=== PATIENT | female | born 1985 | race African-American/Black ===

== ENCOUNTER 2016-09-02 14:19 | Emergency (ER) | payer OTHER ==
[2016-09-02 14:28] VITALS: BP 126/80; PULSE 97; TEMP 98.2; BMI 28.4
--- NOTE | 2016-09-02 15:54 | PDOC ---
History of Present Illness - General Chief Complaint: Headache Stated Complaint: PAIN IN THE HEAD Time Seen by Provider: 09/02/16 14:34 History Source: Patient - History of Present Illness Timing/Duration: reports: other Associated Symptoms: reports: nausea/vomiting. denies: fever/chills, vision changes Past History - Past Medical History Allergies/Adverse Reactions: Allergies Allergy/AdvReac Type Severity Reaction Status Date / Time kiwi Allergy Swelling Verified 09/02/16 14:22 latex Allergy Rash Verified 09/02/16 14:22 epidural Allergy Swelling Uncoded 09/02/16 14:22 Home Medications: Ambulatory Orders Albuterol Sulfate Inhaler - [Ventolin Hfa Inhaler -] 1 - 2 inh PO QID PRN Ibuprofen [Motrin -] 600 mg PO TID PRN #21 tablet 11/03/15 Sulfamethoxazole/Trimethoprim [Bactrim Ds -] 1 tab PO BID #6 tablet 11/03/15 Anemia: Yes Asthma: Yes Cancer: No Cardiac Disorders: No Diabetes: No HTN: No Suicide Attempt (Hx): No Seizures: No Thyroid Disease: No - Reproductive History (#): 4 Para: 1 Therapeutic (s) & number: Yes (1) Spontaneous : 1 - Immunization History Immunization Up to Date: Yes - Psycho/Social/Smoking Cessation Hx Anxiety: No Suicidal Ideation: No Smoking History: Current every day smoker Have you smoked in the past 12 months: Yes Number of Cigarettes Smoked Daily: 6 If you are a former smoker, when did you quit?: 04/2012 Information on smoking cessation initiated: No Hx Alcohol Use: No Drug/Substance Use Hx: No Substance Use Type: None Hx Substance Use Treatment: No Review of Systems - Review of Systems Constitutional: No: Fever HEENTM: No: Blurred Vision ABD/GI: Yes: Nausea. No: Vomiting Neurological: Yes: Headache. No: Dizziness *Physical Exam - Vital Signs Last Vital Signs Temp Pulse Resp BP Pulse Ox 98.2 F 97 H 19 126/80 100 09/02/16 14:22 09/02/16 14:22 09/02/16 14:22 09/02/16 14:22 09/02/16 14:22 - Physical Exam Comments: 09/02/16 15:54 well phoebe, in NAD General Appearance: Yes: Appropriately Dressed. No: Apparent Distress HEENT: positive: Normal Voice Neck: positive: Supple Respiratory/Chest: negative: Respiratory Distress Integumentary: positive: Dry, Warm Neurologic: positive: Fully Oriented, Alert, Normal Mood/Affect, Motor Strength 07/02 Medical Decision Making - Medical Decision Making 09/02/16 15:46 31-year-old female, history of asthma, presenting w/ SANDOVAL. Patient states she's had similar headaches for approximately 1 year, usually located to left latter-day and sometimes associated with left retro-orbital pain and nausea. Pain reoccurred this am and has since improved w/ otc meds. Has been to see her PMD for headaches once in the past with no clear diagnosis. Has never been evaluated by a neurologist per pt. No unexplained weight loss. No sig fmhx See exam Acute on chronic SANDOVAL Currently improved w/ otc meds Stable and well ap w/ unremarkable exam Possibly migraines based on HPI Upreg neg -Dc w/ neuro f/u 09/02/16 15:55 *DC/Admit/Observation/Transfer Diagnosis at time of Disposition: Headache Qualifiers: Headache type: unspecified Headache chronicity pattern: chronic headache Intractability: not intractable Qualified Code(s): R51 - Headache - Discharge Dispostion Condition at time of disposition: Improved - Referrals Referrals: Jazmine Luu MD [Primary Care Provider] - Gregg Arnold MD [Staff Physician] - - Patient Instructions Printed Discharge Instructions: Migraine -- Adult Additional Instructions: Continue taking [id number] medication and follow-up with Dr. Gregg Arnold of neurology for further evaluation for your headache
== END 2016-09-02 16:17 | disposition home or self-care (01) ==
LOC: JERFT 14:19
DX: R51 Headache (principal); J45.909 Unspecified asthma, uncomplicated
CPT/HCPCS: 84703; 99281-25

== ENCOUNTER 2017-07-06 15:00 | Emergency (ER) | payer OTHER ==
[2017-07-06 15:54] VITALS: BP 118/80; PULSE 90; TEMP 98.8; BMI 30.7
--- NOTE | 2017-07-06 15:56 | PDOC ---
Rapid Medical Evaluation Time Seen by Provider: 07/06/17 15:53 Medical Evaluation: Allergies Allergy/AdvReac Type Severity Reaction Status Date / Time kiwi Allergy Swelling Verified 07/06/17 15:48 latex Allergy Rash Verified 07/06/17 15:48 epidural Allergy Swelling Uncoded 07/06/17 15:48 Vital Signs Temp Pulse Resp BP Pulse Ox 98.8 F 90 19 118/80 99 07/06/17 15:48 07/06/17 15:48 07/06/17 15:48 07/06/17 15:48 07/06/17 15:48 07/06/17 15:54 I have performed a brief in-person evaluation of this patient. The patient presents with a chief complaint of: facial/neck pain and swelling x 2 days, also c/o CP while at work today. H/o asthma Pertinent physical exam findings:Stable w/ swelling to submandibular area extending into neck w/ ?ttp to sublingual area, poor dentition, chest/lungs clear I have ordered the following:labs/ekg The patient will proceed to the ED for further evaluation. Discharge Disposition - Diagnosis Facial swelling - Referrals - Patient Instructions - Post Discharge Activity
[2017-07-06 16:09] LABS: BASO % 1.1 % (0-2.0); EOS % 2.2 % (0-4.5); HEMATOCRIT 37.9 % (32.4-45.2); HEMOGLOBIN 12.5 GM/dL (10.7-15.3); LYMPH % 32.4 % (8-40); MCH 28.9 pg (25.7-33.7); MEAN CELL VOLUME 87.5 fl (80-96); MEAN PLT VOLUME 9.3 fl (7.5-11.1); MONO % 6.4 % (3.8-10.2); NEUT % 57.9 % (42.8-82.8); PLATELET COUNT 234 K/MM3 (134-434); RBC 4.33 M/mm3 (3.60-5.2); RDW 13.6 % (11.6-15.6); WHITE BLOOD COUNT 10.9 K/mm3 (4.0-10.0)
[2017-07-06 16:42] LABS: URINE APPEARANCE SLCLOUDY; URINE BILIRUBIN NEGATIVE (<2.0 mg/dL); URINE COLOR YELLOW; URINE GLUCOSE (UA) NEGATIVE (NEGATIVE); URINE KETONE NEGATIVE (NEGATIVE); URINE LEUK ESTERASE TRACE (NEGATIVE); URINE NITRITE NEGATIVE (NEGATIVE); URINE PROTEIN NEGATIVE (NEGATIVE)
[2017-07-06] MEDS ORDERED: SODIUM CHLORIDE 0.9% 1000 ML INFUS.BAG IV ONE (16:43)
[2017-07-06] MEDS ORDERED: ACETAMINOPHEN 1000 MG/100 ML VIAL (NON FORMULARY) IVPB ONE (16:43)
[2017-07-06 16:58] LABS: EPI CELLS RARE /HPF (FEW); URINE BACTERIA RARE /hpf (NONE SEEN); URINE MUCUS FEW
--- NOTE | 2017-07-06 17:05 | PDOC ---
History of Present Illness - General Chief Complaint: Pain, Acute Stated Complaint: MOUTH PAIN/SWELLING&CHEST PAIN Time Seen by Provider: 07/06/17 15:53 History Source: Patient Exam Limitations: No Limitations - History of Present Illness Initial Comments: 07/06/17 17:03 The patient is a 31F with a PMH of asthma who presents to the ER with jaw and submandibular pain. The patient states that she began to have jaw and neck pain yesterday and took an ibuprofen this morning when she noticed the pain was not getting better. She states that she woke up this morning and noticed swelling on the bottom of her jaw with tenderness on palpation. The patient states that she had a dental extraction 1 month ago and was not given antibiotics after. The patient denies any fever, chills, nausea, vomiting. She does admit to CP which is described as across her sternum and pressure like since this morning. She cannot describe the pain further. Past History - Past Medical History Allergies/Adverse Reactions: Allergies Allergy/AdvReac Type Severity Reaction Status Date / Time kiwi Allergy Swelling Verified 07/06/17 15:48 latex Allergy Rash Verified 07/06/17 15:48 epidural Allergy Swelling Uncoded 07/06/17 15:48 Home Medications: Ambulatory Orders Albuterol Sulfate Inhaler - [Ventolin Hfa Inhaler -] 1 - 2 inh PO QID PRN Ibuprofen [Motrin -] 600 mg PO TID PRN #21 tablet 11/03/15 Sulfamethoxazole/Trimethoprim [Bactrim Ds -] 1 tab PO BID #6 tablet 11/03/15 Anemia: Yes Asthma: Yes Cancer: No Cardiac Disorders: No COPD: No Diabetes: No HTN: No Seizures: No Thyroid Disease: No - Reproductive History (#): 4 Para: 1 Therapeutic (s) & number: Yes (1) Spontaneous : 1 - Immunization History Immunization Up to Date: Yes - Suicide/Smoking/Psychosocial Hx Smoking History: Current every day smoker Have you smoked in the past 12 months: Yes Number of Cigarettes Smoked Daily: 6 If you are a former smoker, when did you quit?: 04/2012 Information on smoking cessation initiated: No Hx Alcohol Use: No Drug/Substance Use Hx: No Substance Use Type: None Hx Substance Use Treatment: No Review of Systems - Review of Systems Able to Perform ROS?: Yes Comments:: 07/06/17 17:34 GENERAL/CONSTITUTIONAL: No fever or chills. No weakness. HEAD, EYES, EARS, NOSE AND THROAT: Positive for jaw pain and swelling. No change in vision. No ear pain or discharge. No sore throat. CARDIOVASCULAR: Positive for chest pain. No palpitations or lightheadedness. RESPIRATORY: No cough, wheezing, shortness of breath, or hemoptysis. GASTROINTESTINAL: No nausea, vomiting, diarrhea, constipation, or abdominal pain. GENITOURINARY: No dysuria, frequency, hematuria, or change in urination. MUSCULOSKELETAL: No joint or muscle swelling or pain. No neck or back pain. SKIN: No rash or lesions. NEUROLOGIC: No headache, numbness, tingling, weakness, loss of consciousness, or change in strength/sensation. ENDOCRINE: No increased thirst. No abnormal weight change. HEMATOLOGIC/LYMPHATIC: No anemia, easy bleeding, or history of blood clots. ALLERGIC/IMMUNOLOGIC: No hives or skin allergy. Is the patient limited Yi proficient: No *Physical Exam - Vital Signs Last Vital Signs Temp Pulse Resp BP Pulse Ox 98.8 F 90 19 118/80 99 07/06/17 15:48 07/06/17 15:48 07/06/17 15:48 07/06/17 15:48 07/06/17 15:48 - Physical Exam Comments: 07/06/17 17:39 GENERAL: Well developed, well nourished. Awake and alert. No acute distress. HEENT: Normocephalic, atraumatic. Hearing grossly normal. Moist mucous membranes. PERRLA, EOMI. No conjunctival pallor. Sclera are non-icteric. Oropharynx is clear. NECK: Tender to palpation over submandibular jaw with swelling. Full ROM. No JVD. No lymphadenopathy. CARDIOVASCULAR: Chest tender to palpation. Regular rate and rhythm. No murmurs, rubs, or gallops. PULMONARY: No evidence of respiratory distress. Lungs clear to auscultation bilaterally. No wheezing, rales or rhonchi. ABDOMINAL: Soft. Non-tender. Non-distended. No rebound or guarding. No organomegaly. Normoactive bowel sounds. GENITOURINARY: No CVA tenderness bilaterally. MUSCULOSKELETAL: Normal range of motion at all joints. No bony deformities or tenderness. EXTREMITIES: No cyanosis. No clubbing. No edema. No calf tenderness. SKIN: Warm and dry. Normal capillary refill. No rashes. No jaundice. NEUROLOGICAL: Alert, awake, appropriate. Cranial nerves 2-12 intact. Normal speech. Gait is normal without ataxia. PSYCHIATRIC: Cooperative. Good eye contact. Appropriate mood and affect. ED Treatment Course - LABORATORY CBC & Chemistry Diagram: 07/06/17 16:03 07/06/17 16:03 - ADDITIONAL ORDERS Additional order review: Laboratory Results 07/06/17 16:08 Urine Color Yellow Urine Appearance Slcloudy Urine pH 6.0 Ur Specific [place] 1.017 Urine Protein Negative Urine Glucose (UA) Negative Urine Ketones Negative Urine Blood Negative Urine Nitrite Negative Urine Bilirubin Negative Urine Urobilinogen 2.0 H Ur Leukocyte Esterase Trace Urine WBC (Auto) 3 Urine RBC (Auto) 5 Ur Epithelial Cells Rare Urine Bacteria Rare Urine Mucus Few 07/06/17 16:03 RBC 4.33 MCV 87.5 MCHC 33.0 RDW 13.6 MPV 9.3 Neutrophils % 57.9 Lymphocytes % 32.4 D Monocytes % 6.4 Eosinophils % 2.2 Basophils % 1.1 Medical Decision Making - Medical Decision Making 07/06/17 17:39 The patient is a 31F with a PMH of asthma who presents with jaw pain. The patient does not have any tongue protrusion and is afebrile. Pending labs and imaging (CT soft tissue neck and face). 07/06/17 20:34 Pt signed out to Dr. Stevens, night team. Pending imaging read. *DC/Admit/Observation/Transfer Diagnosis at time of Disposition: Facial swelling - Referrals - Patient Instructions - Post Discharge Activity
[2017-07-06 17:23] LABS: CHLORIDE 107 mmol/L (98-107); SODIUM 140 mmol/L (136-145)
[2017-07-06 17:34] LABS: ALK PHOS 78 U/L (45-117); ANION GAP 6 (8-16); BILIRUBIN,TOTAL 0.6 mg/dL (0.2-1.0); BLOOD UREA NITROGEN 5 mg/dL (7-18); CALCIUM 8.2 mg/dL (8.5-10.1); CO2 27 mmol/L (21-32); CREATININE 0.8 mg/dL (0.55-1.02); GLUCOSE,RANDOM 89 mg/dL (74-106); SGOT/AST 11 U/L (15-37); SGPT/ALT 12 U/L (12-78); TOT PROT 7.6 g/dl (6.4-8.2)
[2017-07-06] MEDS ORDERED: ACETAMINOPHEN INJECTION 100 ML IVPB ONE (18:22)
--- NOTE | 2017-07-06 20:34 | PDOC ---
*Physical Exam - Vital Signs Last Vital Signs Temp Pulse Resp BP Pulse Ox 98.8 F 90 19 118/80 99 07/06/17 15:48 07/06/17 15:48 07/06/17 15:48 07/06/17 15:48 07/06/17 15:48 ED Treatment Course - LABORATORY CBC & Chemistry Diagram: 07/06/17 16:03 07/06/17 16:03 - ADDITIONAL ORDERS Additional order review: Laboratory Results 07/06/17 07/06/17 07/06/17 16:08 16:03 16:03 Sodium 140 Potassium 4.0 Chloride 107 Carbon Dioxide 27 Anion Gap 6 L BUN 5 L Creatinine 0.8 Creat Clearance w eGFR > 60 Random Glucose 89 Calcium 8.2 L Total Bilirubin 0.6 D AST 11 L ALT 12 Alkaline Phosphatase 78 Creatine Kinase 160 Troponin I < 0.02 Total Protein 7.6 Albumin 4.0 Serum , Qual Negative Urine Color Yellow Urine Appearance Slcloudy Urine pH 6.0 Ur Specific [place] 1.017 Urine Protein Negative Urine Glucose (UA) Negative Urine Ketones Negative Urine Blood Negative Urine Nitrite Negative Urine Bilirubin Negative Urine Urobilinogen 2.0 H Ur Leukocyte Esterase Trace Urine WBC (Auto) 3 Urine RBC (Auto) 5 Ur Epithelial Cells Rare Urine Bacteria Rare Urine Mucus Few 07/06/17 16:03 RBC 4.33 MCV 87.5 MCHC 33.0 RDW 13.6 MPV 9.3 Neutrophils % 57.9 Lymphocytes % 32.4 D Monocytes % 6.4 Eosinophils % 2.2 Basophils % 1.1 - Medications Given in the ED: ED Medications Discontinued Medications Generic Name Dose Route Start Last Admin Trade Name Alondra PRN Reason Stop Dose Admin Acetaminophen 1,000 mg 07/06/17 16:43 07/06/17 18:31 Ofirmev Injection - IVPB 07/06/17 16:44 1,000 mg ONCE ONE Administration Sodium Chloride 1,000 ml 07/06/17 16:43 07/06/17 18:31 Normal Saline - IV 07/06/17 16:44 1,000 ml ONCE ONE Administration Medical Decision Making - Medical Decision Making Pt endorsed to me by Dr. Bermudez. Will f/u CT soft tissue of neck. If evidence of abscess, admit for IV abx and possible I+D. 07/06/17 20:33 Pt will leave AMA. Acknowledged understanding of risks of lack of IV abx for infection, including worsening infection, loss of airway and sepsis. 10 day course of oral clindamycin sent to pt's pharmacy. 07/06/17 22:39 *DC/Admit/Observation/Transfer Diagnosis at time of Disposition: Facial swelling, Tooth infection, Lymphadenopathy of head and neck - Discharge Dispostion Disposition: AGAINST MEDICAL ADVICE Condition at time of disposition: Unchanged/Unknown - Prescriptions Prescriptions: Clindamycin [Cleocin -] 450 mg PO Q8H #90 capsule - Referrals Referrals: Jose Pollack MD [Staff Physician] - - Patient Instructions Printed Discharge Instructions: DI for Tooth Decay, DI for Lymphadenopathy Additional Instructions: Please make an appointment to see your PMD and the dentist tomorrow. If your swelling increased please return to the ED immediately. - Post Discharge Activity
[2017-07-06] MEDS ORDERED: CLINDAMYCIN 600MG PREMIX IVPB 600 MG/50 ML BAG IVPB ONE ×2 (21:03→21:15)
--- NOTE | 2017-07-06 22:02 | PDOC ---
Attending Attestation - Resident Resident Name: Andrez Bermudez - ED Attending Attestation I have performed the following: I have examined & evaluated the patient, The case was reviewed & discussed with the resident, I agree w/resident's findings & plan, Exceptions are as noted - Medical Decision Making 07/06/17 22:02 I, Dr. Arleth Davis, DO, attest that this document has been prepared under my direction and personally reviewed by me in its entirety. I further attest, that it accurately reflects all work, treatment, procedures and medical decision -making performed by me. 07/06/17 22:09 a/p: 31yo female with neck swelling/submandibular swelling -soft tissue swelling to submandibular space - soft, but swollen -concern for poss ludwigs angina -will obtain labs, ct soft tissue neck, start abx -cultures will be sent -front lower teeth with poss tooth abscess, poss potential for transmission of infection 07/06/17 22:15 no fevers mildly elevated wbc ct shows submandibular lymphadenopathy abx running no signs of deep space infeciton on ct 07/06/17 22:[address] findings states she cannot stay for iv abx discussed risk benefit of staying for iv abx pt states she wants to sign out AMA and will take abx as an outpt 07/06/17 22:16 Note: The patient insists on leaving the emergency dept and is signing out against medical advice. The patient understands the risks and complications that may result from the refusal of medical care and admission which includes and permanent disability. The patient has the mental capacity of understanding the risks of refusing care and is capable of making an informed decision. The patient was instructed to return to the emergency department should She change her mind regarding medical care or should her condition worsen. The patient signed the Against Medical Advice form. <Arleth Davis - Last Filed: 07/06/17 22:09> - HPI HPI: 07/06/17 22:25 The patient is a 31 year old female with no past medical history who presents to the ED with 1 day of submandibular neck swelling and pain that is unaffected by ibuprofen. She reports having difficulty opening and closing her mouth as well. She reports having a dental extraction performed 1 month ago and not receiving any antibiotics afterwards. The patient also reports developing chest pain since this morning without any radiation, palpitations, or shortness of breath. Denies any fevers, chills, nausea, vomiting, diarrhea, cough, or urinary symptoms. - Physicial Exam PE: 07/06/17 22:26 GENERAL: Awake, alert, and fully oriented, in no acute distress HEAD: No signs of trauma EYES: PERRLA, EOMI, sclera anicteric, conjunctiva clear ENT: Auricles normal inspection, hearing grossly normal, nares patent, oropharynx clear without exudates. Moist mucosa. No tongue elevation NECK: soft tissue swelling to submandibular space.Normal ROM, supple, no JVD. LUNGS: Breath sounds equal, clear to auscultation bilaterally. No wheezes, and no crackles HEART: Regular rate and rhythm, normal S1 and S2, no murmurs, rubs or gallops ABDOMEN: Soft, nontender, normoactive bowel sounds. No guarding, no rebound. No masses EXTREMITIES: Normal range of motion, no edema. No clubbing or cyanosis. No cords, erythema, or tenderness NEUROLOGICAL: Cranial nerves II through XII grossly intact. Normal speech, normal gait SKIN: Warm, Dry, normal turgor, no rashes or lesions noted. - Medical Decision Making 07/06/17 22:27 Documentation prepared by Kimberley Schwartz, acting as medical staffing coordinator for Arleth Davis DO. <Kimberley Schwartz - Last Filed: 07/06/17 22:27> Discharge Disposition - Discharge Dispostion Last Admission D/C Date: 11/02/13 Decision to Admit order: No <Arleth Davis - Last Filed: 07/06/17 22:09> <Kimberley Schwartz - Last Filed: 07/06/17 22:27> - Diagnosis Facial swelling, Tooth infection, Lymphadenopathy of head and neck - Discharge Dispostion Disposition: AGAINST MEDICAL ADVICE Condition at time of disposition: Unchanged/Unknown - Prescriptions Prescriptions: Clindamycin [Cleocin -] 450 mg PO Q8H #90 capsule - Referrals Referrals: Jose Pollack MD [Staff Physician] - - Patient Instructions Printed Discharge Instructions: DI for Tooth Decay, DI for Lymphadenopathy Additional Instructions: Please make an appointment to see your PMD and the dentist tomorrow. If your swelling increased please return to the ED immediately.
== END 2017-07-06 22:55 | disposition left against medical advice (07) ==
LOC: JER 15:00
PROC: 3E03329 Introduction of Other Anti-infective into Peripheral Vein, Percutaneous Approach (ICD-10-PCS; principal; 2017-07-06)
PROC: 3E033NZ Introduction of Analgesics, Hypnotics, Sedatives into Peripheral Vein, Percutaneous Approach (ICD-10-PCS; 2017-07-06)
DX: K04.7 Periapical abscess without sinus (principal); R59.0 Localized enlarged lymph nodes
CPT/HCPCS: 36415; 70491-TC; 80053; 81003; 81015; 82550; 82553; 84484; 84703; 85025; 87040; 99285-25; J0131; J7030

== ENCOUNTER 2019-02-08 11:18 | Emergency (ER) | payer OTHER ==
[2019-02-08 11:26] VITALS: BP 116/88; PULSE 97; TEMP 98.2; BMI 30.4
--- NOTE | 2019-02-08 11:51 | PDOC ---
History of Present Illness - General Chief Complaint: Foreign Body (FB) Stated Complaint: SWALLOWED DENTAL INPLANT Time Seen by Provider: 02/08/19 11:23 - History of Present Illness Initial Comments: 02/08/19 11:46 33 years old with no significant past medical history had a left upper tooth dental implants which she swallowed approximately 15 minutes ago patient concerned because the dental implant had a screw Currently asymptomatic with no complaints Past History - Past Medical History Allergies/Adverse Reactions: Allergies Allergy/AdvReac Type Severity Reaction Status Date / Time kiwi Allergy Swelling Verified 02/08/19 11:19 latex Allergy Rash Verified 02/08/19 11:19 epidural Allergy Swelling Uncoded 02/08/19 11:19 Home Medications: Ambulatory Orders Albuterol Sulfate Inhaler - [Ventolin Hfa Inhaler -] 1 - 2 inh PO QID PRN Anemia: Yes Asthma: Yes Cancer: No Cardiac Disorders: No COPD: No Diabetes: No HTN: No Seizures: No Thyroid Disease: No - Reproductive History Is Patient Now?: No (#): 4 Para: 1 Therapeutic (s) & number: Yes (1) Spontaneous : 1 - Immunization History Immunization Up to Date: Yes - Psycho Social/Smoking Cessation Hx Smoking History: Current every day smoker Have you smoked in the past 12 months: Yes Number of Cigarettes Smoked Daily: 4 If you are a former smoker, when did you quit?: 04/2012 Information on smoking cessation initiated: Yes Hx Alcohol Use: No Drug/Substance Use Hx: No Substance Use Type: None Hx Substance Use Treatment: No Review of Systems - Review of Systems Comments:: 02/08/19 11:46 ROS: A complete review of 10 out of 10 review of systems is taken and is negative apart from what is previously mentioned below and in the HPI. *Physical Exam - Vital Signs Last Vital Signs Temp Pulse Resp BP Pulse Ox 98.2 F 97 H 16 116/88 100 02/08/19 11:19 02/08/19 11:19 02/08/19 11:19 02/08/19 11:19 02/08/19 11:19 - Physical Exam 02/08/19 11:49 Vitals: Triage Vital signs reviewed General Appearance: No acute distress, well nourished well developed, Head: Atraumatic, Lungs: Clear to auscultation bilateral, good air movement bilaterally, Abdomen: Soft, non distended, normal bowel sounds, non tender to palpation Psych: Normal mood, normal affect ED Treatment Course - RADIOLOGY Radiology Studies Ordered: Category Date Time Status CHEST - PA [RAD] Stat Radiology 02/08/19 11:23 Ordered Medical Decision Making - Medical Decision Making 02/08/19 12:32 Swallowed dental implant visible in the stomach on x-ray appears rounded in nature does not appear sharp Case discussed with Dr. Chandra gastroenterology no indication for acute endoscopic removal at this time will most likely pass on its own Very strict return instructions discussed with patient Findings, the need for follow-up and strict return instructions discussed with patient. Discharge - Discharge Information Problems reviewed: Yes Clinical Impression/Diagnosis: Foreign body Condition: Good Disposition: HOME - Admission No - Follow up/Referral Referrals: Joby Chandra MD [Staff Physician] - - Patient Discharge Instructions Patient Printed Discharge Instructions: DI for Foreign Body, Swallowed-Adult Additional Instructions: Return to the emergency department immediately for any severe stomach pain any blood in stool or for any concerns you can return for repeat x-ray if you like to make sure that the tooth is passing normally Follow-up with your dentist within 1 to 2 weeks. - Post Discharge Activity
== END 2019-02-08 12:43 | disposition home or self-care (01) ==
LOC: FER 11:18
DX: T18.2XXA Foreign body in stomach, initial encounter (principal); X58.XXXA Exposure to other specified factors, initial encounter; Y93.9 Activity, unspecified; Z91.018 Allergy to other foods; Z91.040 Latex allergy status; F17.210 Nicotine dependence, cigarettes, uncomplicated; J45.909 Unspecified asthma, uncomplicated; D64.9 Anemia, unspecified
CPT/HCPCS: 71045-TC-FY; 99282-25

== ENCOUNTER 2021-02-06 09:31 | Emergency (ER) | payer OTHER ==
[2021-02-06 09:47] VITALS: BP 115/76; PULSE 100; TEMP 976; BMI 35.2
== END 2021-02-06 11:16 | disposition home or self-care (01) ==
LOC: JERFT 09:31
DX: M54.50 Low back pain, unspecified (principal)
CPT/HCPCS: 99283-25

== ENCOUNTER 2021-09-24 09:49 | Emergency (ER) | payer OTHER ==
[2021-09-24 10:02] VITALS: BP 130/86; PULSE 91; RESP 20; TEMP 98.3; BMI 37.1
[2021-09-24] MEDS ORDERED: KETOROLAC TROMETHAMINE 30 MG/1 ML VIAL IM ONE (10:40)
[2021-09-24] MEDS ORDERED: KETOROLAC TROMETHAMINE 30 MG/1 ML VIAL ONE (11:14)
== END 2021-09-24 13:01 | disposition home or self-care (01) ==
LOC: JERFT 09:49
PROC: 3E023GC Introduction of Other Therapeutic Substance into Muscle, Percutaneous Approach (ICD-10-PCS; principal; 2021-09-24)
DX: M79.605 Pain in left leg (principal)
CPT/HCPCS: 73562-TC-LT-FY; 93971-TC; 99284-25

== ENCOUNTER 2023-04-01 13:16 | Emergency (ER) | payer OTHER ==
[2023-04-01 13:42] VITALS: BP 133/92; PULSE 91; RESP 18; TEMP 97.8; BMI 36.6
[2023-04-01] MEDS ORDERED: ACETAMINOPHEN 500 MG TABLET (FP) PO ONE (14:19)
[2023-04-01] MEDS ORDERED: ACETAMINOPHEN 325 MG TABLET (FP) ONE (14:57)
[2023-04-01 16:23] LABS: EPI CELLS >36 /uL (0-25.1); HYALINE CASTS 0 /uL (0-3.1); URINE APPEARANCE CLOUDY; URINE BACTERIA 2763 /uL (0-1359); URINE BILIRUBIN NEGATIVE (NEGATIVE); URINE COLOR YELLOW; URINE GLUCOSE (UA) NEGATIVE (NEGATIVE); URINE KETONE NEGATIVE (NEGATIVE); URINE LEUK ESTERASE 1+ (NEGATIVE); URINE NITRITE NEGATIVE (NEGATIVE); URINE PROTEIN NEGATIVE (NEGATIVE); URINE RBC 32 /uL (0-23.9); URINE UROBILINOGEN 0.2 mg/dL (0.2-1.0); URINE WBC 79 /uL (0-25.8)
[2023-04-01 16:24] LABS: HCG,QUALITATIVE URINE Negative
[2023-04-01 16:43] LABS: BASO % 1.1 % (0-2.0); EOS % 2.4 % (0-4.5); HEMATOCRIT 34.6 % (32.4-45.2); HEMOGLOBIN 11.5 GM/dL (10.7-15.3); LYMPH % 37.4 % (8-40); MCH 27.1 pg (25.7-33.7); MCHC 33.4 g/dl (32.0-36.0); MEAN PLT VOLUME 8.9 fl (7.5-11.1); MONO % 4.7 % (3.8-10.2); NEUT % 54.4 % (42.8-82.8); PLATELET COUNT 281 10^3/uL (134-434); RBC 4.27 M/mm3 (3.60-5.2); RDW 14.7 % (11.6-15.6); WHITE BLOOD COUNT 10.6 K/mm3 (4.0-10.0)
[2023-04-01 17:03] LABS: POTASSIUM 3.9 mmol/L (3.5-5.1)
[2023-04-01 17:08] LABS: ALBUMIN 3.4 g/dl (3.4-5.0); BLOOD UREA NITROGEN 9.6 mg/dL (7-18); CALCIUM 9.1 mg/dL (8.5-10.1)
[2023-04-01 17:11] LABS: CREATININE 0.7 mg/dL (0.55-1.3)
[2023-04-01] MEDS ORDERED: cefTRIAXone SODIUM 1 GM VIAL ONE (17:12)
[2023-04-01 17:13] LABS: BILIRUBIN,TOTAL 0.2 mg/dL (0.2-1); TOT PROT 7.4 g/dl (6.4-8.2)
[2023-04-01] MEDS ORDERED: LIDOCAINE HCL 2% (20ML MULTI-DOSE VIAL) ONE (17:20)
== END 2023-04-01 17:47 | disposition home or self-care (01) ==
LOC: JER 13:16
DX: R30.0 Dysuria (principal); M25.512 Pain in left shoulder; N89.8 Other specified noninflammatory disorders of vagina; R10.9 Unspecified abdominal pain
CPT/HCPCS: 36415; 73030-TC-LT-FY; 80053; 81003; 84703; 85025; 87070; 87086; 87186; 87205; 87491; 87591; 87661; 99284-25

== ENCOUNTER 2023-06-07 16:09 | Emergency (ER) | payer OTHER ==
[2023-06-07 16:19] VITALS: BP 120/85; PULSE 98; RESP 18; TEMP 98; BMI 37.1
[2023-06-07 18:33] LABS: BASO % 0.8 % (0-2.0); EOS % 2.4 % (0-4.5); HEMATOCRIT 36.6 % (32.4-45.2); HEMOGLOBIN 11.9 GM/dL (10.7-15.3); LYMPH % 36.4 % (8-40); MCH 26.3 pg (25.7-33.7); MCHC 32.7 g/dl (32.0-36.0); MEAN CELL VOLUME 80.6 fl (80-96); MEAN PLT VOLUME 9.1 fl (7.5-11.1); MONO % 5.3 % (3.8-10.2); NEUT % 55.1 % (42.8-82.8); PLATELET COUNT 321 10^3/uL (134-434); RBC 4.54 M/mm3 (3.60-5.2); RDW 15.7 % (11.6-15.6); WHITE BLOOD COUNT 11.4 K/mm3 (4.0-10.0)
[2023-06-07 19:16] LABS: POTASSIUM 3.7 mmol/L (3.5-5.1)
[2023-06-07 19:21] LABS: ALBUMIN 3.5 g/dl (3.4-5.0); CALCIUM 9.2 mg/dL (8.5-10.1)
[2023-06-07 19:22] LABS: BLOOD UREA NITROGEN 7.6 mg/dL (7-18)
[2023-06-07 19:24] LABS: CREATININE 0.8 mg/dL (0.55-1.3)
[2023-06-07 19:26] LABS: BILIRUBIN,TOTAL 0.3 mg/dL (0.2-1); TOT PROT 7.6 g/dl (6.4-8.2)
[2023-06-07] MEDS ORDERED: IBUPROFEN 600 MG TABLET (FP) PO ONE (20:58)
[2023-06-07] MEDS ORDERED: SULFAMETHOXAZOLE/TRIMETHOPRIM 800MG/160MG D.S. TABLET ONE (20:58)
[2023-06-07] MEDS: SULFAMETHOXAZOLE/TRIMETHOPRIM 800MG/160MG D.S. TABLET PO ONE (21:09)
[2023-06-07] MEDS: IBUPROFEN 600 MG TABLET (FP) PO ONE (21:09)
== END 2023-06-07 22:23 | disposition home or self-care (01) ==
LOC: JERFT 16:09
DX: N64.4 Mastodynia (principal); N60.01 Solitary cyst of right breast
CPT/HCPCS: 36415; 76642-TC-50; 80053; 85025; 99284-25

== ENCOUNTER 2023-09-08 16:45 | Emergency (ER) | payer OTHER ==
[2023-09-08 16:55] VITALS: BP 128/89; PULSE 99; RESP 18; TEMP 98.3; BMI 37.9
[2023-09-08 19:21] LABS: BASO % 0.8 % (0-2.0); EOS % 2.2 % (0-4.5); HEMATOCRIT 33.7 % (32.4-45.2); LYMPH % 36.9 % (8-40); MCH 26.1 pg (25.7-33.7); MCHC 32.6 g/dl (32.0-36.0); MEAN CELL VOLUME 80.2 fl (80-96); MONO % 6.7 % (3.8-10.2); NEUT % 53.4 % (42.8-82.8); PLATELET COUNT 310 10^3/uL (134-434); RDW 15.7 % (11.6-15.6); WHITE BLOOD COUNT 10.3 K/mm3 (4.0-10.0)
[2023-09-08 19:33] LABS: POTASSIUM 3.7 mmol/L (3.5-5.1)
[2023-09-08 19:36] LABS: CALCIUM 8.9 mg/dL (8.5-10.1)
[2023-09-08 19:37] LABS: ALBUMIN 3.6 g/dl (3.4-5.0); BLOOD UREA NITROGEN 7.5 mg/dL (7-18)
[2023-09-08 19:40] LABS: CREATININE 0.8 mg/dL (0.55-1.3)
[2023-09-08 19:41] LABS: BILIRUBIN,TOTAL 0.3 mg/dL (0.2-1); TOT PROT 7.6 g/dl (6.4-8.2)
[2023-09-08 21:33] LABS: PH,URINE 6.5 (5.0-8.0); URINE APPEARANCE CLEAR; URINE BILIRUBIN NEGATIVE (NEGATIVE); URINE COLOR YELLOW; URINE GLUCOSE (UA) NEGATIVE (NEGATIVE); URINE KETONE NEGATIVE (NEGATIVE); URINE LEUK ESTERASE NEGATIVE (NEGATIVE); URINE NITRITE NEGATIVE (NEGATIVE); URINE PROTEIN NEGATIVE (NEGATIVE)
== END 2023-09-08 23:19 | disposition home or self-care (01) ==
LOC: JER 16:45
DX: R07.89 Other chest pain (principal); R60.0 Localized edema; M25.471 Effusion, right ankle; M25.472 Effusion, left ankle; R20.0 Anesthesia of skin
CPT/HCPCS: 36415; 71046-TC-FY; 80053; 81003; 82010; 84484; 84703; 85025; 93005; 93010; 99285-25

== ENCOUNTER 2024-02-01 11:21 | Emergency (ER) | payer OTHER ==
[2024-02-01 11:35] VITALS: TEMP 98.1; BMI 36.3
[2024-02-01] MEDS ORDERED: predniSONE 20 MG TABLET (UD) ONE (13:19)
[2024-02-01] MEDS ORDERED: ALBUTEROL SO4 2.5/IPRATROPIUM 0.5 INH SOL 3 ML VIAL.NEB. NEB ONE (13:20)
[2024-02-01 13:38] LABS: PH,URINE 5.5 (5.0-8.0); URINE APPEARANCE CLEAR; URINE BILIRUBIN NEGATIVE (NEGATIVE); URINE COLOR YELLOW; URINE GLUCOSE (UA) NEGATIVE (NEGATIVE); URINE KETONE NEGATIVE (NEGATIVE); URINE LEUK ESTERASE NEGATIVE (NEGATIVE); URINE NITRITE NEGATIVE (NEGATIVE); URINE PROTEIN NEGATIVE (NEGATIVE); URINE UROBILINOGEN 0.2 mg/dL (0.2-1.0)
[2024-02-01 13:46] LABS: HCG,QUALITATIVE URINE Negative
[2024-02-01] MEDS: predniSONE 20 MG TABLET (UD) PO ONE (13:56)
[2024-02-01] MEDS: ALBUTEROL SO4 2.5/IPRATROPIUM 0.5 INH SOL 3 ML VIAL.NEB. NEB SCH (13:56)
[2024-02-01 15:29] LABS: BASO % 0.7 % (0-2.0); EOS % 1.8 % (0-4.5); HEMATOCRIT 35.7 % (32.4-45.2); HEMOGLOBIN 11.8 GM/dL (10.7-15.3); LYMPH % 28.2 % (8-40); MCH 25.7 pg (25.7-33.7); MCHC 32.9 g/dl (32.0-36.0); MEAN CELL VOLUME 77.9 fl (80-96); MEAN PLT VOLUME 8.9 fl (7.5-11.1); MONO % 4.9 % (3.8-10.2); NEUT % 64.4 % (42.8-82.8); PLATELET COUNT 351 10^3/uL (134-434); RBC 4.58 M/mm3 (3.60-5.2); RDW 16.4 % (11.6-15.6); WHITE BLOOD COUNT 9.3 K/mm3 (4.0-10.0)
[2024-02-01 15:39] LABS: ACTIVATED PTT 30.8 SECONDS (25.2-36.5); INR 1.04 (0.83-1.09)
[2024-02-01 15:50] LABS: POTASSIUM 3.5 mmol/L (3.5-5.1)
[2024-02-01 15:51] LABS: CALCIUM 9.1 mg/dL (8.5-10.1)
[2024-02-01 15:52] LABS: ALBUMIN 3.7 g/dl (3.4-5.0); BLOOD UREA NITROGEN 7.5 mg/dL (7-18)
[2024-02-01 15:57] LABS: BILIRUBIN,TOTAL 0.7 mg/dL (0.2-1); TOT PROT 8.4 g/dl (6.4-8.2)
[2024-02-01] MEDS ORDERED: ALBUTEROL SO4 0.083% IH SOL 2.5 MG/3 ML VIAL.NEB. NEB ONE (17:45)
[2024-02-01] MEDS: ALBUTEROL SO4 0.083% IH SOL 2.5 MG/3 ML VIAL.NEB. NEB ONE (17:48)
[2024-02-01 18:14] VITALS: BP 130/79; PULSE 115
[2024-02-01] MEDS ORDERED: IBUPROFEN 600 MG TABLET (FP) PO ONE (18:15)
[2024-02-01] MEDS: IBUPROFEN 600 MG TABLET (FP) PO ONE (18:17)
[2024-02-01 18:22] VITALS: RESP 18
[2024-02-02 00:07] LABS: HIV INTERPRETATION NEGATIVE (NEGATIVE)
== END 2024-02-01 18:31 | disposition home or self-care (01) ==
LOC: JER 11:21
DX: R07.89 Other chest pain (principal); R59.0 Localized enlarged lymph nodes; J45.41 Moderate persistent asthma with (acute) exacerbation; R06.02 Shortness of breath
CPT/HCPCS: 36415; 71046-TC-FY; 71275-TC; 80053; 81003; 84703; 85025; 85610; 85730; 86803; 87389; 93005; 93010; 99285-25; Q9967